=== PATIENT | female | born 1950 | race Two or more races ===

== ENCOUNTER 2017-05-14 19:57 | Emergency (ER) | payer MEDICARE ==
[2017-05-14 20:55] LABS: ADD MAN DIFF? NO
[2017-05-14 20:58] LABS: BASO # 0.1 x10^3/uL (0.0-0.2); BASO % 0 % (0-3); BILIRUBIN,URINE NEGATIVE (NEG); EOS % 1 % (0-3); GLUCOSE,URINE NEGATIVE (NEG); HEMATOCRIT 42.3 % (36.0-47.0); HEMOGLOBIN 13.9 g/dL (12.0-15.5); LYMPH # 2.3 x10^3/uL (1.0-4.8); LYMPH % 18 % (24-48); MEAN CORPUSCULAR HEMOGLOBIN 30 pg (25-35); MEAN CORPUSCULAR HGB CONC 33 g/dL (31-37); MEAN CORPUSCULAR VOLUME 92 fL (79-100); MONO % 5 % (0-9); NEUT % 76 % (31-73); NITRITE,URINE NEGATIVE (NEG); PLATELET COUNT 258 x10^3/uL (140-400); PROTEIN,URINE NEGATIVE (NEG-TRACE); RED BLOOD COUNT 4.61 x10^6/uL (3.50-5.40); RED CELL DISTRIBUTION WIDTH 13.5 % (11.5-14.5); UROBILINOGEN,URINE 0.2 mg/dL (0.2 mg/dL)
[2017-05-14 21:06] LABS: BACTERIA,URINE FEW /HPF (0-FEW); SQUAMOUS EPITHELIAL CELL,UR FEW /LPF
[2017-05-14 21:08] LABS: ANION GAP 12 (6-14); BLOOD UREA NITROGEN 10 mg/dL (7-20); CALCIUM 8.7 mg/dL (8.5-10.1); CARBON DIOXIDE 26 mmol/L (21-32); CHLORIDE 102 mmol/L (98-107); CREATININE 0.7 mg/dL (0.6-1.0); GLUCOSE 128 mg/dL (70-99); SODIUM 140 mmol/L (136-145)
[2017-05-14 21:12] LABS: ALBUMIN 3.9 g/dL (3.4-5.0); ALK PHOS 70 U/L (46-116); ALT (SGPT) 26 U/L (14-59); AST (SGOT) 21 U/L (15-37); DIRECT BILIRUBIN 0.1 mg/dL (0.0-0.2); TOTAL BILIRUBIN 0.4 mg/dL (0.2-1.0); TOTAL PROTEIN 8.4 g/dL (6.4-8.2)
[2017-05-14 21:20] LABS: TROPONINI < 0.017 ng/mL (0.000-0.055)
[2017-05-14 21:36] LABS: LACTIC ACID 1.6 mmol/L (0.4-2.0)
== END 2017-05-14 22:36 | disposition home or self-care (01) ==
LOC: ER 19:57
DX: R42 Dizziness and giddiness (principal); R11.0 Nausea; I10 Essential (primary) hypertension; Z90.49 Acquired absence of other specified parts of digestive tract; F17.210 Nicotine dependence, cigarettes, uncomplicated
CPT/HCPCS: 36415; 70450; 71010; 80048; 80076; 81001; 83605; 83690; 84484; 85025; 93005; 99285